=== PATIENT | female | born 1985 | race Two or more races ===

== ENCOUNTER 2024-08-03 19:47 | Emergency (ER) | payer BC, SELFPAY ==
[2024-08-03 19:48] VITALS: BMI 38.2
[2024-08-03 20:38] VITALS: BP 125/89; PULSE 112; RESP 20; TEMP 37.8; O2SAT 95
--- NOTE | 2024-08-03 20:54 | EDNOTE_ITS ---
ED Headache RME/HPI General Chief Complaint: Headache Stated Complaint: HEADACHE /CHILLS X 3DAYS Time Seen by Provider: 08/03/24 19:55 Arrival date/time: 08/03/24 19:47 39-year-old female reports with complaints of bodyaches fevers chills nausea and headache x 2 days. Patient denies any shortness of breath chest pain dizziness blurred vision ringing in ears or urinary symptoms. Patient states that she has been taking [id number] medications with no improvement of symptoms. Limitations: no limitations Related Data Home Medications ?Medication ?Instructions ?Recorded ?Confirmed PNV CMB#95/FERROUS FUMARATE/FA 1 tab PO QDAY #0 tabs 0 09/20/15 ( MULTIVITAMINS TABLET) Previous Rx's ?Medication ?Instructions ?Recorded doxycycline hyclate 100 mg capsule 100 mg PO BID 10 da ys #20 caps 08/03/24 Allergies Allergy/AdvReac Type Severity Reaction Status Date / Time No Known Allergies Allergy Verified 02/07/24 20:17 Review of Systems Constitutional Constitutional: Reports chills and Reports fever(s) ENT Ears, Nose, Mouth, and Throat: Denies throat swelling and Denies tongue swelling Cardiovascular Cardiovascular: Denies chest pain and Denies dyspnea Respiratory Respiratory: Reports cough and Denies dyspnea Gastrointestinal Gastrointestinal: Reports nausea and Denies vomiting Integumentary/Breasts Skin/Breast: Denies erythema and Denies rash Allergic/Immunologic Allergic/Immunologic: Denies throat swelling and Denies tongue swelling Past Medical History Social History SMOKING STATUS: Never smoker ED Exam General Limitations: Present no limitations General appearance: Present alert and in no apparent distress Head Head exam: Present atraumatic Eye Eye exam: Present normal appearance, PERRL and EOMI ENT ENT exam: Present normal exam, normal oropharynx and mucous membranes moist Neck Neck exam: Present normal inspection, full ROM and trachea midline Chest Chest inspection: Present normal inspection and symmetric chest wall rise Respiratory Respiratory exam: Present normal lung sounds bilaterally Cardiovascular Cardiovascular exam: Present regular rate, normal rhythm and normal heart sounds Abdominal Exam Abdominal exam: Present soft and normal bowel sounds Extremities Exam Extremities exam: Present normal inspection and full ROM Back Exam Back exam: Present normal inspection and full ROM Neurological Exam Neurological exam: Present alert, oriented X3 and CN II-XII intact Psychiatric Psychiatric exam: Present normal affect and normal mood Skin Skin exam: Present warm, dry, intact and normal color Course Course Course Narrative: 39-year-old female reports with complaints of a headache COVID and influenza are negative however chest x-ray is positive for right upper lobe infiltrate but CBC is unremarkable. Patient given Rocephin she is stable nontoxic-appearing with stable vital signs she is in no respiratory distress with oxygen saturations above 95%. She will be discharged home on oral antibiotics and follow-up with her primary care provider in 72 hours Quality Measures none Orders Category Date Time Status Bedside COVID-19 Antigen Test NOW Care 08/03/24 20:54 Active Bedside Influenza A&B Antigen Test NOW Care 08/03/24 20:54 Completed XR chest 2V Stat Exams 08/03/24 21:26 Completed CBC Stat Lab 08/03/24 22:36 Completed cefTRIAXone [Rocephin] 1,000 mg Med 08/03/24 22:18 Discontinued Lidocaine 1% 20 ml [Xylocaine 1% 20 ML] 2.1 ml IM X1 Vital Signs Vital signs: Vital Signs Temperature 100.1 F 08/03/24 20:38 Pulse Rate 112 H 08/03/24 20:38 Respiratory Rate 20 08/03/24 20:38 Blood Pressure 125/89 H 08/03/24 20:38 Pulse Oximetry (%) 95 08/03/24 20:38 Oxygen Delivery Method Room Air 08/03/24 20:38 Headache Patient data External records reviewed:: None Clinical information provided by:: patient Social determinants that could affect healthcare access:: none Patient has the following chronic illnesses:: none How is presenting disease/condition affected by chronic disease/condition?: no chronic disease Evaluation data The following diagnostics were reviewed and interpreted by me:: lab results and radiology exam(s) Lab and/or radiology exams considered but not ordered:: none Interpretation Summary: pneumonia Medications / Prescriptions Medications or Prescriptions considered but not ordered:: none Medication administrations:: Medication Administration History Discontinued Medications Ceftriaxone Sodium 1,000 mg/ (Lidocaine HCl 2.1 ml) 0 mg IM X1 ONE Stop: 08/03/24 22:19 Last Admin: 08/03/24 23:04 Dose: 1,000 mg Documented By: KG as above Consultations Consultation(s) initiated? (list below): No Diagnosis Differential diagnosis headache: other (pneumonia, viral syndrome) Most likely diagnosis given after review of the tests above:: pneumonia Admission Indicated Admission indicated?: not indicated Admission Request Was there a request for admission?: No Disposition Plan Disposition Plan: Discharge Discharge Attestation Discharge Attestation: The patient and all family members were given an opportunity to ask questions and understood the discharge instructions. Discharge instructions specifically effects, indications for sooner follow up or return to the emergency department, and the expected course of current diagnosis. Patient condition: Stable Discharge Plan Plan Patient Disposition: HOME (Self Care) Prescriptions/Referrals Prescriptions/Med Rec: New doxycycline hyclate 100 mg capsule 100 mg PO BID 10 Days Qty: 20 0RF No Action PNV CMB#95/FERROUS FUMARATE/FA ( MULTIVITAMINS TABLET) 1 EACH tablet 1 tab PO QDAY Qty: 0 Referrals: Javi Downey MD [Primary Care Provider] - 08/06/24 Problem List Clinical Impression: Pneumonia Patient/Caregiver Discharge Instructions Discharge Activity: activity as tolerated Education Materials: ED Pneumonia (Adult) Additional Instructions: Take antibiotics as directed hydrate well and follow-up with your primary care provider in 3 days. Return to the emergency department if symptoms should worsen Print Language: Polish Stand Alone Forms: Linda Award Info., Patient Portal Info Letter
--- NOTE | 2024-08-03 21:26 | XR_ITS ---
Examination: PA lateral chest 2 views Technique: Upright PA lateral chest 2 views Exam date and time: August 03, 2024 2140 hrs. Indications: Bodyaches fever chills nausea and headaches beginning 2 days ago. Findings: Early pneumonia in the right upper lobe No significant cardiac enlargement Poor inspiratory effort Mild osteopenia Impression: Early pneumonia right upper lobe
[2024-08-03 22:59] LABS: Basophils # (Auto) 0.1 Thou/mm3 (0.0-0.2); Basophils % (Auto) 1 % (0-2.5); Eosinophils # (Auto) 0.1 Thou/mm3 (0.0-0.5); Eosinophils % (Auto) 1 % (0-10); Hematocrit 41.9 % (36.0-46.0); Hemoglobin 14.1 g/dL (12.0-16.0); Immature Granulocytes % (Auto) 0 % (0-0); Immature Granulocytes Auto 0.02 Thou/mm3 (0.00-0.00); Lymphocytes % (Auto) 21 % (10-50); Mean Corpuscular HGB Conc 33.7 g/dl (31.0-37.0); Mean Corpuscular Hemoglobin 27.4 pg (25.0-35.0); Mean Corpuscular Volume 82 fL (80-100); Monocytes # (Auto) 0.6 Thou/mm3 (0.0-0.8); Monocytes % (Auto) 6 % (0-12); Neutrophils # (Auto) 6.7 Thou/mm3 (1.8-7.7); Neutrophils % (Auto) 71 % (37-80); Nucleated Red Blood Cell % 0 /100 WBC (0); Platelet Count 237 Thou/mm3 (140-440); RDW Standard Deviation 40.9 fL (36.4-46.3); Red Blood Count 5.14 Miln/mm3 (4.00-5.20); White Blood Count 9.4 Thou/mm3 (3.6-11.0)
[2024-08-03] MEDS: cefTRIAXone 1,000 MG, LIDOCAINE 1% 20 ML 2.1 ML IM (23:04)
== END 2024-08-03 23:46 | disposition home or self-care (01) ==
PROVIDERS: Physician Assistant; Emergency Provider Emergency Medicine; PCP Family Medicine
DX: J18.9 Pneumonia, unspecified organism (principal)
CPT/HCPCS: 36415; 71046; 85025; 87400; 87811; 96372; 99283; J0696; J3490

== ENCOUNTER 2024-11-30 19:57 | Emergency (ER) | payer BC, SELFPAY ==
[2024-11-30 19:58] VITALS: BMI 38.2
[2024-11-30 20:49] VITALS: BP 140/91; PULSE 92; RESP 18; TEMP 37.4; O2SAT 99
--- NOTE | 2024-11-30 20:53 | EDNOTE_ITS ---
ED Ear RME/HPI General Chief complaint: Ear Stated complaint: RIGHT EAR PAIN Time Seen by Provider: 11/30/24 20:18 Source: patient, RN notes reviewed and old records reviewed Arrival date/time: 11/30/24 19:57 Mode of arrival: ambulatory Limitations: no limitations RME / HPI RME / HPI Narrative: 39yof presents to ED for right ear pain x5 days. Patient denies recent swimming or URI symptoms. States she has psoriasis which frequently causes outer ear infections. Patient was seen in pcp clinic 3 days ago and prescribed cipro drops. Patient, however, states ear canal is too swollen to administer drops. No fever reported. No medications taken for pain. Related Data Home Medications ?Medication ?Instructions ?Recorded ?Confirmed PNV CMB#95/FERROUS FUMARATE/FA 1 tab PO QDAY #0 tabs 0 09/20/15 ( MULTIVITAMINS TABLET) Allergies Allergy/AdvReac Type Severity Reaction Status Date / Time No Known Allergies Allergy Verified 11/30/24 19:57 Review of Systems Review of Systems Systems Reviewed: All systems reviewed, normal except as documented Constitutional Constitutional: Denies chills and Denies fever(s) ENT Ears, Nose, Mouth, and Throat: Reports ear discharge and Reports otalgia Past Medical History Past Medical History GASTROINTESTINAL: Positive Obesity Surgical History OTHER SURGICAL HX: denies pshx Social History SMOKING STATUS: Never smoker SUBSTANCE USE: does not use ALCOHOL: Never Past Medical History Comments PMH COMMENT: psoriasis ED Exam General Limitations: Present no limitations General appearance: Present alert and in no apparent distress Head Head exam: Present atraumatic and normocephalic Eye Eye exam: Present normal appearance, PERRL and EOMI ENT ENT exam: Present normal oropharynx, mucous membranes moist and other (R EAC swollen, tender. Unable to visualize TM. No mastoid ttp) Neck Neck exam: Present normal inspection and full ROM Chest Chest inspection: Present normal inspection and symmetric chest wall rise Respiratory Respiratory exam: Present normal lung sounds bilaterally; Absent respiratory distress Cardiovascular Cardiovascular exam: Present regular rate and normal rhythm Extremities Exam Extremities exam: Present normal inspection and full ROM Neurological Exam Neurological exam: Present alert and oriented X3 Psychiatric Psychiatric exam: Present normal affect and normal mood Skin Skin exam: Present warm, dry, intact and normal color Course Quality Measures none Orders Category Date Time Status TETRACAINE Op Hoda 0.5% [Pontocaine Op Hoda 0.5%] Med 11/30/24 20:54 Discontinued 1 drop RIGHT EYE X1 ONE Vital Signs Vital signs: Vital Signs Temperature 99.3 F 11/30/24 20:49 Pulse Rate 92 11/30/24 20:49 Respiratory Rate 18 11/30/24 20:49 Blood Pressure 140/91 H 11/30/24 20:49 Pulse Oximetry (%) 99 11/30/24 20:49 Oxygen Delivery Method Room Air 11/30/24 20:49 Ear MDM Narrative MDM Narrative:: 39yof presents to ED for right ear pain x5 days. Patient denies recent swimming or URI symptoms. States she has psoriasis which frequently causes outer ear infections. Patient was seen in pcp clinic 3 days ago and prescribed cipro drops. Patient, however, states ear canal is too swollen to administer drops. No fever reported. No medications taken for pain. Exam findings c/w otitis externa. Ear wick and tetracaine drops applied to R EAC, pain improved. Recommended using cipro drops as prescribed. Patient has ENT f/u this week. Stable for dc, RTED precautions given. Patient data External records reviewed:: [facility] previous records (08/03/24 ED visit for pneumonia) Clinical information provided by:: patient Social determinants that could affect healthcare access:: none Patient has the following chronic illnesses:: psoriasis How is presenting disease/condition affected by chronic disease/condition?: cau sed by Evaluation data The following diagnostics were reviewed and interpreted by me:: other (specify) (none) Lab and/or radiology exams considered but not ordered:: CT EAC: no mastoid tenderness, do not suspect mastoiditis Interpretation Summary: na Medications / Prescriptions Medications or Prescriptions considered but not ordered:: none Medication administrations:: Medication Administration History Discontinued Medications Tetracaine HCl (Tetracaine Pf Op Hoda 0.5% 4 Ml Drpette) 1 drop RIGHT EYE X1 ONE Stop: 11/30/24 20:55 Last Admin: 11/30/24 22:04 Dose: 1 drop Documented By: CB above medication administered in ED Consultations Consultation(s) initiated? (list below): No Diagnosis Ear Differential Diagnosis: otitis externa, otitis media, foreign body in ear, ruptured TM and cerumen impaction Most likely diagnosis given after review of the tests above:: otitis externa Admission Indicated Admission indicated?: not indicated Admission Request Was there a request for admission?: No Disposition Plan Disposition Plan: Discharge Discharge Attestation Discharge Attestation: The patient and all family members were given an opportunity to ask questions and understood the discharge instructions. Discharge instructions specifically effects, indications for sooner follow up or return to the emergency department, and the expected course of current diagnosis. Patient condition: Stable Discharge Plan Plan Patient Disposition: HOME (Self Care) Patient condition on transfer: Stable Prescriptions/Referrals Prescriptions/Med Rec: No Action PNV CMB#95/FERROUS FUMARATE/FA ( MULTIVITAMINS TABLET) 1 EACH tablet 1 tab PO QDAY Qty: 0 Referrals: Javi Downey MD [Primary Care Provider] - In 1 week Problem List Clinical Impression: Otitis externa of right ear Patient/Caregiver Discharge Instructions Education Materials: ED External Ear Infection (Adult) Additional Instructions: Continue your Ciprodex drops as prescribed. Follow-up with ENT in 3 days as scheduled. ENT can remove the ear wick if it has not fallen out before your appointment Print Language: Icelandic Stand Alone Forms: Linda Award Info., Patient Portal Info Letter PA/[employer] Supervising Physician HUE/[employer] Supervising Physician: Patsy
[2024-11-30] MEDS: TETRACAINE PF OP SOL 0.5% 4 ML DRPETTE 1 DROP RIGHT EYE (22:04)
== END 2024-11-30 22:14 | disposition home or self-care (01) ==
PROVIDERS: Emergency Provider Emergency Medicine; PCP Family Medicine
DX: H60.91 Unspecified otitis externa, right ear (principal)
CPT/HCPCS: 99282